=== PATIENT | female | born 1965 | race Asian ===

== ENCOUNTER 2018-09-22 02:44 | Inpatient (IN) | payer MEDICAID ==
[~2018-09-22] VITALS: Ht 152.4 cm; Wt 120.2 kg
[2018-09-22] VITALS (9 sets, daily range): BP systolic 92–127; BP diastolic 56–81
--- NOTE | 2018-09-22 02:47 | NUR ---
ED Nurse Note: Earnest presents BIBA with complaints of n/V and pain. patient is accompanied by family member.
[2018-09-22] MEDS ORDERED: DiphenhydrAMINE 50mg/ml Inj IVP ONE (03:00)
--- NOTE | 2018-09-22 03:08 | Emergency Room Report ---
History of Present Illness General Chief Complaint: Abdominal Pain Source: Family Member Present Illness HPI Patient presents with complaints of right flank pain lower abdomen pain dysuria frequency patient reports that 3 months ago she had a bladder infection Around midnight patient started having flank pain Increased nausea vomiting presents to the ER by paramedics actively vomiting Fevers and chills subjectively denies any chest pain Denies any diarrhea Denies any fall or trauma Allergies: Coded Allergies: No Known Allergies (Unverified , 09/22/18) Patient History Past Medical History: see triage record Pertinent Family History: none Reviewed Nursing Documentation: PMH: Agreed; PSxH: Agreed Nursing Documentation-PMH Hx Diabetes: Yes Review of Systems All Other Systems: negative except mentioned in HPI Physical Exam Vital Signs Date Time Temp Pulse Resp B/P (MAP) Pulse Ox O2 Delivery O2 Flow Rate FiO2 09/22/18 02:45 97.5 83 21 100/64 96 Room Air Sp02 EP Interpretation: reviewed, normal General Appearance: mild distress - Actively nauseated and vomiting Head: normocephalic, atraumatic Eyes: bilateral eye PERRL, bilateral eye EOMI ENT: hearing grossly normal, normal pharynx, TMs + canals normal, uvula midline Neck: full range of motion, supple, no meningismus, no bony tend Respiratory: lungs clear, normal breath sounds, no rhonchi, no respiratory distress, no retraction, no accessory muscle use Cardiovascular #1: normal peripheral pulses, regular rate, rhythm, no edema, no gallop, no JVD, no murmur Gastrointestinal: normal bowel sounds, non tender, soft, no mass, no organomegaly, non-distended, no guarding, no hernia, no pulsatile mass, no rebound Genitourinary: CVA tenderness (R) Musculoskeletal: normal inspection Neurologic: oriented x3, responsive, 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, motor strength/ tone normal, sensory intact Psychiatric: mood/affect normal Skin: normal color, no rash, warm/dry, palpation normal Lymphatic: normal inspection, no adenopathy Medical Decision Making Diagnostic Impression: Primary Impression: Pyelonephritis ER Course With the history exam and presentation, multiple differentials considered, including but not limited to appendicitis, gastritis, cholecystitis, diverticulitis Patient had extensive workup initiated Findings are concerning for possible pyelonephritis especially given the right sided flank discomfort CT imaging is obtained however please note that there is a delay in Reading of the CT as there is A disconnect between PACS and online radiology Patient further hydrated pain medications provided CT imaging does reveal right- sided hydronephrosis with differentials and consideration of recently passed stone versus pyelonephritis Patient admitted to inpatient care for further evaluation Labs Test 09/22/18 03:10 White Blood Count 11.2 K/UL (4.8-10.8) Red Blood Count 4.37 M/UL (4.20-5.40) Hemoglobin 12.4 G/DL (12.0-16.0) Hematocrit 37.1 % (37.0-47.0) Mean Corpuscular Volume 85 FL (80-99) Mean Corpuscular Hemoglobin 28.3 PG (27.0-31.0) Mean Corpuscular Hemoglobin Concent 33.4 G/DL (32.0-36.0) Red Cell Distribution Width 12.2 % (11.6-14.8) Platelet Count 124 K/UL (150-450) Mean Platelet Volume 13.7 FL (6.5-10.1) Neutrophils (%) (Auto) 81.8 % (45.0-75.0) Lymphocytes (%) (Auto) 16.3 % (20.0-45.0) Monocytes (%) (Auto) 0.9 % (1.0-10.0) Eosinophils (%) (Auto) 0.5 % (0.0-3.0) Basophils (%) (Auto) 0.6 % (0.0-2.0) Urine Color Pale yellow Urine Appearance Clear Urine pH 5 (4.5-8.0) Urine Specific [place] 1.020 (1.005-1.035) Urine Protein Negative (NEGATIVE) Urine Glucose (UA) 2+ (NEGATIVE) Urine Ketones Negative (NEGATIVE) Urine Blood Negative (NEGATIVE) Urine Nitrite Negative (NEGATIVE) Urine Bilirubin Negative (NEGATIVE) Urine Urobilinogen Normal MG/DL (0.0-1.0) Urine Leukocyte Esterase 1+ (NEGATIVE) Sodium Level 140 MMOL/L (136-145) Potassium Level 3.5 MMOL/L (3.5-5.1) Chloride Level 102 MMOL/L (98-107) Carbon Dioxide Level 30 MMOL/L (21-32) Anion Gap 8 mmol/L (5-15) Blood Urea Nitrogen 17 mg/dL (7-18) Creatinine 1.1 MG/DL (0.55-1.30) Estimat Glomerular Filtration Rate 52.6 mL/min (>60) Glucose Level 257 MG/DL (74-106) Calcium Level 8.8 MG/DL (8.5-10.1) Total Bilirubin 0.3 MG/DL (0.2-1.0) Aspartate Amino Transf (AST/SGOT) 14 U/L (15-37) Alanine Aminotransferase (ALT/SGPT) 22 U/L (12-78) Alkaline Phosphatase 94 U/L (46-116) Total Protein 7.5 G/DL (6.4-8.2) Albumin 3.6 G/DL (3.4-5.0) Globulin 3.9 g/dL Albumin/Globulin Ratio 0.9 (1.0-2.7) Lipase 164 U/L (73-393) CT/MRI/US Diagnostic Results CT/MRI/US Diagnostic Results : Impression CT abdomen pelvisIMPRESSION: Obstructive nephropathy in the right kidney with delayed enhancement of the right kidney and moderate inflammation and hydroureteronephrosis. No obstructing stone seen at this time. Findings may be due to recently passed stone. Pyelonephritis is another consideration. Other incidental findings as above. Last Vital Signs Date Time Temp Pulse Resp B/P (MAP) Pulse Ox O2 Delivery O2 Flow Rate FiO2 09/22/18 02:45 97.5 83 21 100/64 96 Room Air Status: improved Disposition: ADMITTED INPATIENT Condition: Serious TaylorlorManuela JEAN BAPTISTE Sep 22, 2018 03:08
[2018-09-22] MEDS ORDERED: Isovue-300 100ml vial INJ PRN (03:15)
[2018-09-22 03:34] LABS: BASOPHILS % (AUTO) 0.6 % (0.0-2.0); EOSINOPHILS % (AUTO) 0.5 % (0.0-3.0); HEMATOCRIT 37.1 % (37.0-47.0); HEMOGLOBIN 12.4 G/DL (12.0-16.0); LYMPHOCYTES % (AUTO) 16.3 % (20.0-45.0); MEAN CORPUSCULAR VOLUME 85 FL (80-99); MONOCYTES % (AUTO) 0.9 % (1.0-10.0); NEUTROPHILS % (AUTO) 81.8 % (45.0-75.0); PLATELET COUNT 124 K/UL (150-450); RED BLOOD COUNT 4.37 M/UL (4.20-5.40); RED CELL DISTRIBUTION WIDTH 12.2 % (11.6-14.8); WHITE BLOOD COUNT 11.2 K/UL (4.8-10.8)
[2018-09-22 03:37] LABS: ANION GAP 8 mmol/L (5-15); BLOOD UREA NITROGEN 17 mg/dL (7-18); CALCIUM 8.8 MG/DL (8.5-10.1); CARBON DIOXIDE 30 MMOL/L (21-32); CHLORIDE 102 MMOL/L (98-107); CREATININE 1.1 MG/DL (0.55-1.30); POTASSIUM 3.5 MMOL/L (3.5-5.1); SODIUM 140 MMOL/L (136-145)
[2018-09-22 03:41] LABS: ALANINE AMINOTRANSFERASE 22 U/L (12-78); ALBUMIN 3.6 G/DL (3.4-5.0); ALBUMIN/GLOBULIN RATIO 0.9 (1.0-2.7); ALKALINE PHOSPHATASE 94 U/L (46-116); ASPARTATE AMINO TRANSFERASE 14 U/L (15-37); BILIRUBIN,TOTAL 0.3 MG/DL (0.2-1.0)
[2018-09-22 03:44] LABS: APPEARANCE,URINE CLEAR; BILIRUBIN, URINE NEGATIVE (NEGATIVE); COLOR,URINE PALE YELLOW; GLUCOSE, URINE (UA) 2+ (NEGATIVE); KETONES,URINE NEGATIVE (NEGATIVE); LEUKOCYTE ESTERASE ,URINE 1+ (NEGATIVE); NITRITE,URINE NEGATIVE (NEGATIVE); PH,URINE 5 (4.5-8.0); PROTEIN,URINE NEGATIVE (NEGATIVE); UROBILINOGEN,URINE NORMAL MG/DL (0.0-1.0)
--- NOTE | 2018-09-22 03:47 | NUR ---
ED Nurse Note: Patient is resting with and sister alternating at bedside. Patient is lethargic, and agitated.
--- NOTE | 2018-09-22 04:20 | NUR ---
ED Nurse Note: Patient returned from CT.
--- NOTE | 2018-09-22 04:23 | NUR ---
ED Nurse Note: patient is sleeping soundly, sister is at her bedside. no s/s of acute distress.
[2018-09-22] MEDS ORDERED: cefTRIAXone 1 GM in NS 55 ML IVPB ONE (04:45)
--- NOTE | 2018-09-22 05:48 | NUR ---
ED Nurse Note: Patient currently resting, vss.
[2018-09-22] MEDS ORDERED: METFORMIN500 MG/5 M PO (05:58)
[2018-09-22] MEDS ORDERED: LIPITOR80 MG ORAL (05:58)
--- NOTE | 2018-09-22 06:04 | NUR ---
ED Nurse Note: called in report to spring who will assign patient momentarily, patient accompanied by er-tech to the floor. Patient sleeping comfortably no s/s of acute distress. iV saline locked at left AC.
--- NOTE | 2018-09-22 06:30 | NUR ---
NURSE NOTES: Received patient from ER report given by LIZBETH Hwang via dash. Patient awake and alert. Able to make needs known. Family at bedside. IV line intact right AC 20 saline lock. Oriented patient to room. Provided call light. Will call Dr. Hernández for admission orders. Will endorse to am nurse patient temp. 100.6 cooling measure provided by GEOCHEMIST. Will continue to monitor.
--- NOTE | 2018-09-22 07:34 | NUR ---
HAND-OFF: Report given to LIZBETH Enriquez.
--- NOTE | 2018-09-22 07:43 | NUR ---
Received report from LIZBETH Whelan. patient in bed, alert, getting US, bed in lowest position, call light within reach. will continue to monitor.
--- NOTE | 2018-09-22 08:09 | History & Physical ---
History and Physical History & Physicial Patient presents with complaints of right flank pain lower abdomen pain dysuria frequency family noted recent history of UTI Increased nausea vomiting noted +Fevers and chills Allergies: No Known Allergies (Unverified , 09/22/18) Past Medical History: UTI Laboratory Tests Test 09/22/18 03:10 White Blood Count 11.2 K/UL (4.8-10.8) H Red Blood Count 4.37 M/UL (4.20-5.40) Hemoglobin 12.4 G/DL (12.0-16.0) Hematocrit 37.1 % (37.0-47.0) Mean Corpuscular Volume 85 FL (80-99) Mean Corpuscular Hemoglobin 28.3 PG (27.0-31.0) Mean Corpuscular Hemoglobin Concent 33.4 G/DL (32.0-36.0) Red Cell Distribution Width 12.2 % (11.6-14.8) Platelet Count 124 K/UL (150-450) L Mean Platelet Volume 13.7 FL (6.5-10.1) H Neutrophils (%) (Auto) 81.8 % (45.0-75.0) H Lymphocytes (%) (Auto) 16.3 % (20.0-45.0) L Monocytes (%) (Auto) 0.9 % (1.0-10.0) L Eosinophils (%) (Auto) 0.5 % (0.0-3.0) Basophils (%) (Auto) 0.6 % (0.0-2.0) Urine Color Pale yellow Urine Appearance Clear Urine pH 5 (4.5-8.0) Urine Specific [place] 1.020 (1.005-1.035) Urine Protein Negative (NEGATIVE) Urine Glucose (UA) 2+ (NEGATIVE) H Urine Ketones Negative (NEGATIVE) Urine Blood Negative (NEGATIVE) Urine Nitrite Negative (NEGATIVE) Urine Bilirubin Negative (NEGATIVE) Urine Urobilinogen Normal MG/DL (0.0-1.0) Urine Leukocyte Esterase 1+ (NEGATIVE) H Urine RBC 0-2 /HPF (0 - 2) Urine WBC 5-10 /HPF (0 - 2) H Urine Squamous Epithelial Cells Moderate /LPF (NONE/OCC) H Urine Bacteria Few /HPF (NONE) Sodium Level 140 MMOL/L (136-145) Potassium Level 3.5 MMOL/L (3.5-5.1) Chloride Level 102 MMOL/L (98-107) Carbon Dioxide Level 30 MMOL/L (21-32) Anion Gap 8 mmol/L (5-15) Blood Urea Nitrogen 17 mg/dL (7-18) Creatinine 1.1 MG/DL (0.55-1.30) Estimat Glomerular Filtration Rate 52.6 mL/min (>60) Glucose Level 257 MG/DL (74-106) H Calcium Level 8.8 MG/DL (8.5-10.1) Total Bilirubin 0.3 MG/DL (0.2-1.0) Aspartate Amino Transf (AST/SGOT) 14 U/L (15-37) L Alanine Aminotransferase (ALT/SGPT) 22 U/L (12-78) Alkaline Phosphatase 94 U/L (46-116) Total Protein 7.5 G/DL (6.4-8.2) Albumin 3.6 G/DL (3.4-5.0) Globulin 3.9 g/dL Albumin/Globulin Ratio 0.9 (1.0-2.7) L Lipase 164 U/L (73-393) Pertinent Family History: none Physical WDWN NAD clear breath sounds bilaterally without rhonchi or wheeze [id number] tachy without MRG NABS nontender no HSM no CCE nonfocal mild right flank tenderness IMPRESSION possible pyelo vomiting PLAN iv hydration iv antibiotics repeat labs zofran ID evaluation dc once stable Kartik Hernández MD Sep 22, 2018 08:09
--- NOTE | 2018-09-22 08:09 | General Progress Note ---
Subjective Allergies: Coded Allergies: No Known Allergies (Unverified , 09/22/18) Objective Last 24 Hour Vital Signs Date Time Temp Pulse Resp B/P (MAP) Pulse Ox O2 Delivery O2 Flow Rate FiO2 09/22/18 07:56 99.5 123 20 113/63 (80) 95 09/22/18 06:12 98.1 111 33 107/67 98 Room Air 09/22/18 05:52 97.5 111 33 107/67 100 Room Air 09/22/18 04:23 97.5 112 34 120/76 100 Room Air 09/22/18 03:47 97.5 99 29 118/73 100 Room Air 09/22/18 03:43 97.5 95 33 118/73 100 Room Air 09/22/18 02:47 83 21 Room Air 09/22/18 02:47 97.5 78 21 100/64 96 Room Air 09/22/18 02:45 97.5 83 21 100/64 96 Room Air Intake and Output 09/21/18 09/22/18 19:00 07:00 Intake Total 0 ml Balance 0 ml Intake Oral 0 ml Laboratory Tests 09/22/18 03:10: White Blood Count 11.2H, Red Blood Count 4.37, Hemoglobin 12.4, Hematocrit 37.1 , Mean Corpuscular Volume 85, Mean Corpuscular Hemoglobin 28.3, Mean Corpuscular Hemoglobin Concent 33.4, Red Cell Distribution Width 12.2, Platelet Count 124L, Mean Platelet Volume 13.7H, Neutrophils (%) (Auto) 81.8H, Lymphocytes (%) (Auto) 16.3L, Monocytes (%) (Auto) 0.9L, Eosinophils (%) (Auto) 0.5, Basophils (%) (Auto) 0.6, Urine Color Pale yellow, Urine Appearance Clear, Urine pH 5, Urine Specific [place] 1.020, Urine Protein Negative, Urine Glucose (UA) 2+H, Urine Ketones Negative, Urine Blood Negative, Urine Nitrite Negative, Urine Bilirubin Negative, Urine Urobilinogen Normal, Urine Leukocyte Esterase 1+ H, Urine RBC 0-2, Urine WBC 5-10H, Urine Squamous Epithelial Cells ModerateH, Urine Bacteria Few, Sodium Level 140, Potassium Level 3.5, Chloride Level 102, Carbon Dioxide Level 30, Anion Gap 8, Blood Urea Nitrogen 17, Creatinine 1.1, Estimat Glomerular Filtration Rate 52.6, Glucose Level 257H, Calcium Level 8.8, Total Bilirubin 0.3, Aspartate Amino Transf (AST/SGOT) 14L, Alanine Aminotransferase (ALT/SGPT) 22, Alkaline Phosphatase 94, Total Protein 7.5, Albumin 3.6, Globulin 3.9, Albumin/Globulin Ratio 0.9L, Lipase 164 Height (Feet): 5 Weight (Pounds): 99 Kartik Hernández MD Sep 22, 2018 08:09
[2018-09-22] MEDS ORDERED: Milk of Magnesia 30ml Ud ORAL PRN (08:15)
[2018-09-22] MEDS ORDERED: Zolpidem 5mg tab ORAL PRN (08:15)
--- NOTE | 2018-09-22 09:01 | Diagnostic Imaging Report ---
Indication: Abdominal pain Technique: Continuous helical transaxial imaging of the abdomen and pelvis was obtained from the lung bases to the pubic symphysis during intravenous contrast administration. Coronal 2-D reformats were also obtained. Study obtained in a Siemens sensation [address] Automatic Exposure Control was utilized. Total Dose length Product (DLP): [address] Dose Index Volume (CTDIvol): 9.87 mGy Comparison: None Findings: There is a moderate right perinephric stranding and delayed enhancement of the right kidney with the mild to moderate right hydroureteronephrosis. No definite the urinary tract stone identified to account for this. There is also thickening of the wall the urinary bladder. No free fluid identified. There is a hiatal hernia. Solid organs appear normal. Diverticula noted in the colon. No evidence of diverticulitis. The appendix is normal. IMPRESSION: Obstructive nephropathy in the right kidney with delayed enhancement of the right kidney and moderate inflammation and hydroureteronephrosis. No obstructing stone seen at this time. Findings may be due to recently passed stone. Pyelonephritis is another consideration. Other incidental findings as above. [facility] has communicated the preliminary results to the Emergency Department. Their findings are largely concordant with this report. The CT scanner at [facility] is accredited by the [employer] and the scans are performed using dose optimization techniques as appropriate to a performed exam including Automatic Exposure control.
[2018-09-22] MEDS: Cefepime HCl 1 GM in D5W 55 ML IVPB SCH ×2 (09:33→22:25)
[2018-09-22] MEDS: metFORMIN 500mg tab ORAL SCH ×2 (11:39→16:59)
[2018-09-22] MEDS: NovoLOG Insulin Flexpen SUBQ SCH ×3 (11:42→22:47)
--- NOTE | 2018-09-22 15:30 | Consultation ---
DATE OF CONSULTATION: 09/22/2018 INFECTIOUS DISEASES CONSULTATION: CONSULTING PHYSICIAN: Medina Ybarra M.D. REFERRING PHYSICIAN: Kartik Hernández M.D. REASON FOR CONSULTATION: Urinary tract infection. HISTORY OF PRESENT ILLNESS: This is a 52-year-old lady with history of diabetes, hypertension, hypercholesterolemia who came in with fever, chills, nausea, and vomiting as well as dysuria and increased frequency of urination. She was found to have urinary tract infection and an Infectious Diseases consultation has been obtained for antibiotics. PAST MEDICAL HISTORY: 1. History of diabetes. 2. History of hypertension. 3. Hypercholesterolemia. SOCIAL HISTORY: She does not smoke, drink, or use drugs. FAMILY HISTORY: Positive for blood cancer in her brother. REVIEW OF SYSTEMS: RESPIRATORY: She had fever and chills. No cough. No shortness of breath or chest pain. CARDIAC: No chest pain. No palpitations. No dizziness. No syncope. GASTROINTESTINAL: She has nausea and vomiting. No abdominal pain. She has diarrhea. GENITOURINARY: She has dysuria and increased frequency of urination. MEDICATIONS: As an inpatient, she is on insulin, cefepime, Protonix, Mylanta, Tylenol, [place], Zofran, Ambien, milk of magnesia, Iopamidol. ALLERGIES: No known drug allergies. PHYSICAL EXAMINATION: VITAL SIGNS: Temperature of 99, T-max of 99.5, pulse of 123, respiratory rate 20, blood pressure 113/63, and O2 saturation of 95%. HEENT: Pupils equally reactive to light and accommodation. Mouth appears clean without thrush. NECK: Supple. No adenopathy. No JVD. CARDIOVASCULAR: Regular rate and rhythm. No murmurs. LUNGS: Clear to auscultation bilaterally. No crackles. No wheezes. ABDOMEN: Soft. She has right-sided CVA tenderness. No organomegaly. EXTREMITIES: No cyanosis, no clubbing, no edema. LABORATORY AND DIAGNOSTIC DATA: White count 11.2, hemoglobin 12.4, hematocrit 37.1, MCV 85, platelet count of 124, neutrophils of 81%. Sodium 140, potassium 3.5, chloride 102, bicarb 30, BUN 17, creatinine 1.1, glucose 257, and calcium 8.8. Total bilirubin 0.3, AST 14, ALT 22, and alkaline phosphatase 94. Total protein 7.5. Albumin 3.6. Lipase of 164. UA showing 5 to [address] abdomen and pelvis showing obstructive uropathy in the right kidney with delayed enhancement of the right kidney and moderate inflammation and hydroureteronephrosis. No obstructing stone noted. Pyelonephritis is a possibility. ASSESSMENT: This is a 52-year-old lady with history of diabetes, hypertension, hypercholesterolemia who comes in with fever, chills, nausea, vomiting as well as dysuria and is found to have: 1. Urinary tract infection and right-sided pyelonephritis. 2. Fevers, improving. PLAN: 1. Continue cefepime. 2. We will order urine cultures. 3. We will follow up cultures and adjust antibiotics accordingly. I would like to thank, Dr. Hernández for this consultation. Medina Ybarra M.D. DR: FITO JOB#: [id number] CC: Kartik Hernández M.D.; Fax#: [phone]
--- NOTE | 2018-09-22 15:55 | NUR ---
CASE MANAGEMENT:REVIEW 52 YR OLD FEMALE TO ER CC: ABDOMINAL PAIN 06/17 PMH: S/P UTI 1 WEEK AGO SI: PYELONEPHRITIS 97.6 83 21 100/64 96% ON RA WBC=11.2 URINE(+) 5-10 WBC IS: IV ZOFRAN 1L NS BOLUS IV BENADRYL IV ROCEPHIN CT ABD/PELVIS URINE REFLEX : TO TELEMETRY SI: T~102 HR~116 BP~92/56 IS: IV CEFEPIME Q12 INTERQUAL CRITERIA MET
--- NOTE | 2018-09-22 19:11 | NUR ---
HAND-OFF: Report given to LIZBETH Manley.
[2018-09-22] MEDS: Atorvastatin 80mg tab ORAL SCH (22:25)
[2018-09-23] VITALS: BP 109/65
[2018-09-23 04:00] VITALS: BP 114/67
[2018-09-23] MEDS: metFORMIN 500mg tab ORAL SCH ×3 (06:00→16:40)
[2018-09-23 06:43] LABS: HEMATOCRIT 33.1 % (37.0-47.0); HEMOGLOBIN 10.9 G/DL (12.0-16.0); MEAN CORPUSCULAR VOLUME 85 FL (80-99); PLATELET COUNT 89 K/UL (150-450); RED BLOOD COUNT 3.89 M/UL (4.20-5.40); RED CELL DISTRIBUTION WIDTH 12.4 % (11.6-14.8); WHITE BLOOD COUNT 14.9 K/UL (4.8-10.8)
[2018-09-23 06:52] LABS: ANION GAP 6 mmol/L (5-15); BLOOD UREA NITROGEN 10 mg/dL (7-18); CALCIUM 8.6 MG/DL (8.5-10.1); CARBON DIOXIDE 28 MMOL/L (21-32); CHLORIDE 108 MMOL/L (98-107); CREATININE 0.9 MG/DL (0.55-1.30); POTASSIUM 3.7 MMOL/L (3.5-5.1); SODIUM 142 MMOL/L (136-145)
[2018-09-23] MEDS: NovoLOG Insulin Flexpen SUBQ SCH ×4 (07:03→20:30)
--- NOTE | 2018-09-23 07:30 | NUR ---
HAND-OFF: Report given to LIZBETH Anderson.
--- NOTE | 2018-09-23 07:34 | NUR ---
NURSE NOTES: Received report from LIZBETH Christian. patient in bed. sleeping. bed in lowest position. call light within reach. will continue to monitor.
[2018-09-23 08:00] VITALS: BP 119/75
[2018-09-23] MEDS ORDERED: Tubing IV Secondary IV ONE (08:00)
[2018-09-23] MEDS: Cefepime HCl 1 GM in D5W 55 ML IVPB SCH ×2 (08:45→20:29)
[2018-09-23] MEDS: HYDROcodone/Acetamin 5/325 tab ORAL PRN ×2 (08:46→20:29)
--- NOTE | 2018-09-23 10:59 | Infectious Diseases Prog Note ---
"Assessment/Plan Assessment/Plan antibiotics : cefepime A 1. UTI | right pyelonephritis 2. diabetes mellitus 3. hypertension 4. fever improving 5. leucocytosis P 1. continue cefepime 2. will follow up cultures Subjective ROS Limited/Unobtainable: Yes Allergies: Coded Allergies: No Known Allergies (Unverified , 09/22/18) Objective Vital Signs Last 24 Hour Vital Signs Date Time Temp Pulse Resp B/P (MAP) Pulse Ox O2 Delivery O2 Flow Rate FiO2 09/23/18 08:00 98.4 100 16 119/75 (90) 94 09/23/18 04:00 97.7 94 16 114/67 (83) 97 09/23/18 00:03 99.1 09/23/18 00:00 97.9 101 16 109/65 (80) 97 09/22/18 20:00 99.1 88 18 127/81 (96) 94 09/22/18 16:00 98.2 100 20 113/78 (90) 98 09/22/18 12:48 Room Air 09/22/18 11:55 99.0 116 20 92/56 (68) 96 09/22/18 11:54 Room Air Height (Feet): 5 Height (Inches): 0.00 Weight (Pounds): 265 Microbiology Date/Time Source Procedure Growth Status 09/22/18 11:20 Urine,Clean Catch Urine Culture - Preliminary Mixed Urogenital Contaminants Resulted Laboratory Tests Test 09/23/18 05:10 White Blood Count 14.9 K/UL (4.8-10.8) H Red Blood Count 3.89 M/UL (4.20-5.40) L Hemoglobin 10.9 G/DL (12.0-16.0) L Hematocrit 33.1 % (37.0-47.0) L Mean Corpuscular Volume 85 FL (80-99) Mean Corpuscular Hemoglobin 27.9 PG (27.0-31.0) Mean Corpuscular Hemoglobin Concent 32.8 G/DL (32.0-36.0) Red Cell Distribution Width 12.4 % (11.6-14.8) Platelet Count 89 K/UL (150-450) L Mean Platelet Volume 12.1 FL (6.5-10.1) H Neutrophils (%) (Auto) % (45.0-75.0) Lymphocytes (%) (Auto) % (20.0-45.0) Monocytes (%) (Auto) % (1.0-10.0) Eosinophils (%) (Auto) % (0.0-3.0) Basophils (%) (Auto) % (0.0-2.0) Differential Total Cells Counted 100 Neutrophils % (Manual) 83 % (45-75) H Lymphocytes % (Manual) 10 % (20-45) L Monocytes % (Manual) 5 % (1-10) Eosinophils % (Manual) 0 % (0-3) Basophils % (Manual) 0 % (0-2) Band Neutrophils 2 % (0-8) Platelet Estimate Decreased L Platelet Morphology Normal Red Blood Cell Morphology Normal Sodium Level 142 MMOL/L (136-145) Potassium Level 3.7 MMOL/L (3.5-5.1) Chloride Level 108 MMOL/L (98-107) H Carbon Dioxide Level 28 MMOL/L (21-32) Anion Gap 6 mmol/L (5-15) Blood Urea Nitrogen 10 mg/dL (7-18) Creatinine 0.9 MG/DL (0.55-1.30) Estimat Glomerular Filtration Rate > 60 mL/min (>60) Glucose Level 150 MG/DL (74-106) #H Calcium Level 8.6 MG/DL (8.5-10.1) Current Medications Medications (Trade) Dose Ordered Sig/Deep Route PRN Reason Start Time Stop Time Status Last Admin Dose Admin Acetaminophen (Tylenol) 650 mg Q4H PRN ORAL Mild Pain/Temp > 100.5 09/22/18 08:15 10/22/18 08:14 09/22/18 23:33 Acetaminophen/ Hydrocodone Bitart ([place] 5/325) 1 tab Q4H PRN ORAL Moderate Pain (Pain Scale 4-6) 09/22/18 08:15 09/29/18 08:14 09/23/18 08:46 Al Hydroxide/Mg Hydroxide (Mylanta) 30 ml Q6H PRN ORAL Dyspepsia 09/22/18 10:45 10/22/18 10:44 Atorvastatin Calcium (Lipitor) 80 mg BEDTIME ORAL 09/22/18 21:00 10/22/18 20:59 09/22/18 22:25 Cefepime HCl 1 gm/ Dextrose 55 ml @ 110 mls/hr Q12HR IVPB 09/22/18 09:00 09/29/18 08:59 09/23/18 08:45 Dextrose (Dextrose 50%) 25 ml Q30M PRN IV Hypoglycemia 09/22/18 08:15 10/22/18 08:14 Dextrose (Dextrose 50%) 50 ml Q30M PRN IV Hypoglycemia 09/22/18 08:15 10/22/18 08:14 Insulin Aspart (NovoLOG) BEFORE MEALS AND HS SUBQ 09/22/18 11:30 10/22/18 11:29 09/23/18 07:03 Iopamidol (Isovue-300 100ml) 100 ml NOW PRN INJ Radiology Procedure 09/22/18 03:15 Magnesium Hydroxide (Mom) 30 ml DAILYPRN PRN ORAL Constipation 09/22/18 08:15 10/22/18 08:14 Metformin HCl (Glucophage) 500 mg TIAC ORAL 09/22/18 11:30 10/22/18 11:29 09/23/18 06:00 Ondansetron HCl (Zofran) 4 mg Q6H PRN IVP Nausea & Vomiting 09/22/18 08:15 10/22/18 08:14 Pantoprazole (Protonix) 40 mg DAILY ORAL 09/22/18 09:00 10/22/18 08:59 09/23/18 08:46 Sodium Chloride 1,000 ml @ 100 mls/hr Q10H IV 09/22/18 08:30 10/22/18 08:29 09/23/18 04:56 Zolpidem Tartrate (Ambien) 5 mg HSPRN PRN ORAL Insomnia 09/23/18 21:00 09/30/18 20:59 Medina Ybarra MD Sep 23, 2018 10:59"
[2018-09-23 12:00] VITALS: BP 134/86
--- NOTE | 2018-09-23 13:38 | NUR ---
CASE MANAGEMENT:REVIEW 09/23/18 SI: UTI/PYELONEPHRITIS 97.9 91 16 134/86 93% ON RA WBC+14.9 PLT-89 IS: IVF@100/HR IV CEFEPIME Q12 [place] PO Q4HRS PRN : MED/SURG STATUS 4 EAST DCP: FROM HOME
[2018-09-23 16:00] VITALS: BP 136/86
--- NOTE | 2018-09-23 16:05 | Pulmonology Progress Note ---
Assessment/Plan Assessment/Plan Pulmonary Progress Note Patient with right Pyelonephritis, previously c/o right flank pain lower abdomen pain dysuria frequency Afebrile Elevated WCC, Cefepime per ID Allergies: No Known Allergies (Unverified , 09/22/18) Past Medical History: UTI Laboratory Tests Test 09/22/18 03:10 White Blood Count 11.2 K/UL (4.8-10.8) H Red Blood Count 4.37 M/UL (4.20-5.40) Hemoglobin 12.4 G/DL (12.0-16.0) Hematocrit 37.1 % (37.0-47.0) Mean Corpuscular Volume 85 FL (80-99) Mean Corpuscular Hemoglobin 28.3 PG (27.0-31.0) Mean Corpuscular Hemoglobin Concent 33.4 G/DL (32.0-36.0) Red Cell Distribution Width 12.2 % (11.6-14.8) Platelet Count 124 K/UL (150-450) L Mean Platelet Volume 13.7 FL (6.5-10.1) H Neutrophils (%) (Auto) 81.8 % (45.0-75.0) H Lymphocytes (%) (Auto) 16.3 % (20.0-45.0) L Monocytes (%) (Auto) 0.9 % (1.0-10.0) L Eosinophils (%) (Auto) 0.5 % (0.0-3.0) Basophils (%) (Auto) 0.6 % (0.0-2.0) Urine Color Pale yellow Urine Appearance Clear Urine pH 5 (4.5-8.0) Urine Specific [place] 1.020 (1.005-1.035) Urine Protein Negative (NEGATIVE) Urine Glucose (UA) 2+ (NEGATIVE) H Urine Ketones Negative (NEGATIVE) Urine Blood Negative (NEGATIVE) Urine Nitrite Negative (NEGATIVE) Urine Bilirubin Negative (NEGATIVE) Urine Urobilinogen Normal MG/DL (0.0-1.0) Urine Leukocyte Esterase 1+ (NEGATIVE) H Urine RBC 0-2 /HPF (0 - 2) Urine WBC 5-10 /HPF (0 - 2) H Urine Squamous Epithelial Cells Moderate /LPF (NONE/OCC) H Urine Bacteria Few /HPF (NONE) Sodium Level 140 MMOL/L (136-145) Potassium Level 3.5 MMOL/L (3.5-5.1) Chloride Level 102 MMOL/L (98-107) Carbon Dioxide Level 30 MMOL/L (21-32) Anion Gap 8 mmol/L (5-15) Blood Urea Nitrogen 17 mg/dL (7-18) Creatinine 1.1 MG/DL (0.55-1.30) Estimat Glomerular Filtration Rate 52.6 mL/min (>60) Glucose Level 257 MG/DL (74-106) H Calcium Level 8.8 MG/DL (8.5-10.1) Total Bilirubin 0.3 MG/DL (0.2-1.0) Aspartate Amino Transf (AST/SGOT) 14 U/L (15-37) L Alanine Aminotransferase (ALT/SGPT) 22 U/L (12-78) Alkaline Phosphatase 94 U/L (46-116) Total Protein 7.5 G/DL (6.4-8.2) Albumin 3.6 G/DL (3.4-5.0) Globulin 3.9 g/dL Albumin/Globulin Ratio 0.9 (1.0-2.7) L Lipase 164 U/L (73-393) Pertinent Family History: none VSS noted Physical WDWN NAD clear breath sounds bilaterally without rhonchi or wheeze [id number] tachy without MRG NABS nontender no HSM no CCE nonfocal mild right flank tenderness IMPRESSION possible pyelo vomiting PLAN iv hydration iv antibiotics repeat labs zofran ID evaluation dc once stable Subjective ROS Limited/Unobtainable: No Allergies: Coded Allergies: No Known Allergies (Unverified , 09/22/18) Objective Last 24 Hour Vital Signs Date Time Temp Pulse Resp B/P (MAP) Pulse Ox O2 Delivery O2 Flow Rate FiO2 09/23/18 12:00 97.9 91 16 134/86 (102) 93 09/23/18 09:00 Room Air 09/23/18 08:00 98.4 100 16 119/75 (90) 94 09/23/18 04:00 97.7 94 16 114/67 (83) 97 09/23/18 00:03 99.1 09/23/18 00:00 97.9 101 16 109/65 (80) 97 09/22/18 20:00 99.1 88 18 127/81 (96) 94 Intake and Output 09/22/18 09/23/18 19:00 07:00 Intake Total 1105 ml 835 ml Balance 1105 ml 835 ml Intake Oral 150 ml IV Total 955 ml 835 ml # Voids 3 3 Microbiology Date/Time Source Procedure Growth Status 09/22/18 11:20 Urine,Clean Catch Urine Culture - Preliminary Mixed Urogenital Contaminants Resulted Laboratory Tests 09/23/18 05:10: White Blood Count 14.9H, Red Blood Count 3.89L, Hemoglobin 10.9L, Hematocrit 33.1L, Mean Corpuscular Volume 85, Mean Corpuscular Hemoglobin 27.9, Mean Corpuscular Hemoglobin Concent 32.8, Red Cell Distribution Width 12.4, Platelet Count 89L, Mean Platelet Volume 12.1H, Neutrophils (%) (Auto) , Lymphocytes (%) (Auto) , Monocytes (%) (Auto) , Eosinophils (%) (Auto) , Basophils (%) (Auto) , Differential Total Cells Counted 100, Neutrophils % (Manual) 83H, Lymphocytes % (Manual) 10L, Monocytes % (Manual) 5, Eosinophils % (Manual) 0, Basophils % ( Manual) 0, Band Neutrophils 2, Platelet Estimate DecreasedL, Platelet Morphology Normal, Red Blood Cell Morphology Normal, Sodium Level 142, Potassium Level 3.7, Chloride Level 108H, Carbon Dioxide Level 28, Anion Gap 6, Blood Urea Nitrogen 10, Creatinine 0.9, Estimat Glomerular Filtration Rate > 60 , Glucose Level 150#H, Calcium Level 8.6 Current Medications Medications (Trade) Dose Ordered Sig/Deep Route PRN Reason Start Time Stop Time Status Last Admin Dose Admin Acetaminophen (Tylenol) 650 mg Q4H PRN ORAL Mild Pain/Temp > 100.5 09/22/18 08:15 10/22/18 08:14 09/22/18 23:33 Acetaminophen/ Hydrocodone Bitart ([place] 5/325) 1 tab Q4H PRN ORAL Moderate Pain (Pain Scale 4-6) 09/22/18 08:15 09/29/18 08:14 09/23/18 08:46 Al Hydroxide/Mg Hydroxide (Mylanta) 30 ml Q6H PRN ORAL Dyspepsia 09/22/18 10:45 10/22/18 10:44 Atorvastatin Calcium (Lipitor) 80 mg BEDTIME ORAL 09/22/18 21:00 10/22/18 20:59 09/22/18 22:25 Cefepime HCl 1 gm/ Dextrose 55 ml @ 110 mls/hr Q12HR IVPB 09/22/18 09:00 09/29/18 08:59 09/23/18 08:45 Dextrose (Dextrose 50%) 25 ml Q30M PRN IV Hypoglycemia 09/22/18 08:15 10/22/18 08:14 Dextrose (Dextrose 50%) 50 ml Q30M PRN IV Hypoglycemia 09/22/18 08:15 10/22/18 08:14 Insulin Aspart (NovoLOG) BEFORE MEALS AND HS SUBQ 09/22/18 11:30 10/22/18 11:29 09/23/18 11:51 Iopamidol (Isovue-300 100ml) 100 ml NOW PRN INJ Radiology Procedure 09/22/18 03:15 Magnesium Hydroxide (Mom) 30 ml DAILYPRN PRN ORAL Constipation 09/22/18 08:15 10/22/18 08:14 Metformin HCl (Glucophage) 500 mg TIAC ORAL 09/22/18 11:30 10/22/18 11:29 09/23/18 11:49 Ondansetron HCl (Zofran) 4 mg Q6H PRN IVP Nausea & Vomiting 09/22/18 08:15 10/22/18 08:14 Pantoprazole (Protonix) 40 mg DAILY ORAL 09/22/18 09:00 10/22/18 08:59 09/23/18 08:46 Sodium Chloride 1,000 ml @ 100 mls/hr Q10H IV 09/22/18 08:30 10/22/18 08:29 09/23/18 14:18 Zolpidem Tartrate (Ambien) 5 mg HSPRN PRN ORAL Insomnia 09/23/18 21:00 09/30/18 20:59 Michael Almendarez MD Sep 23, 2018 16:05
--- NOTE | 2018-09-23 19:10 | NUR ---
HAND-OFF: Report given to LIZBETH Lr.
--- NOTE | 2018-09-23 19:39 | NUR ---
NURSE NOTES: Patient in bed, awake, alert, verbally responsive. IV in place, running IV fluids. No complaints of pain at this time. No s/s distress noted. Bed in lowest position, call light within reach. Will continue to monitor.
[2018-09-23 20:11] VITALS: BP 138/92
[2018-09-23] MEDS: Atorvastatin 80mg tab ORAL SCH (20:29)
[2018-09-23] MEDS ORDERED: Zolpidem 5mg tab ORAL PRN (21:00)
--- NOTE | 2018-09-23 22:45 | NUR ---
NURSE NOTES: Patient's IV access tender and puffy, removed. New IV access right wrist 24 gauge, intact and patent.
[2018-09-24 00:12] VITALS: BP 132/82
[2018-09-24 04:13] VITALS: BP 111/71
[2018-09-24] MEDS: metFORMIN 500mg tab ORAL SCH ×3 (06:13→16:56)
[2018-09-24] MEDS: NovoLOG Insulin Flexpen SUBQ SCH ×4 (06:14→21:40)
--- NOTE | 2018-09-24 07:30 | NUR ---
HAND-OFF: Report given to OCTAVIA LORA RN.
--- NOTE | 2018-09-24 07:47 | NUR ---
NURSE NOTES: pt in bed with no sob nor in any form of distress noted. denies any current pain at this time. bed in lowest position. call light within reach at all time. will continue to monitor
[2018-09-24 08:00] VITALS: BP 153/99
[2018-09-24] MEDS: Cefepime HCl 1 GM in D5W 55 ML IVPB SCH ×2 (09:22→21:35)
--- NOTE | 2018-09-24 11:53 | NUR ---
CASE MANAGEMENT:REVIEW 09/24/18 SI: UTI/PYELONEPHRITIS 98.3 90 18 153/99 96% ON RA IS: IVF@100/HR IV CEFEPIME Q12 NORCO PO Q4HRS PRN : MED/SURG STATUS 4 EAST DCP: FROM HOME PLAN: ADVANCE DIET URINE CULTURE PENDING
--- NOTE | 2018-09-24 11:59 | General Progress Note ---
Assessment/Plan Assessment/Plan uti possible pyelo leukocytosis PLAN iv hydration iv antibiotics ID clearance check wbc impression, plan, and exam edited and reviewed in detail care discussed with RN Subjective Allergies: Coded Allergies: No Known Allergies (Unverified , 09/22/18) Subjective some pain Objective Last 24 Hour Vital Signs Date Time Temp Pulse Resp B/P (MAP) Pulse Ox O2 Delivery O2 Flow Rate FiO2 09/24/18 09:34 Room Air 09/24/18 08:00 98.3 90 18 153/99 (117) 96 09/24/18 04:13 97.8 91 17 111/71 (84) 97 09/24/18 00:12 98.1 92 17 132/82 (99) 96 09/23/18 21:00 Room Air 09/23/18 20:59 98.5 09/23/18 20:11 98.5 96 17 138/92 (107) 96 09/23/18 16:00 97.7 98 16 136/86 (103) 98 09/23/18 12:00 97.9 91 16 134/86 (102) 93 Intake and Output 09/23/18 09/24/18 18:59 06:59 Intake Total 1755 ml 795 ml Balance 1755 ml 795 ml Intake Oral 600 ml 240 ml IV Total 1155 ml 555 ml # Voids 4 4 Height (Feet): 5 Height (Inches): 0.00 Weight (Pounds): 265 Objective WDWN NAD clear breath sounds bilaterally without rhonchi or wheeze [id number] without MRG NABS nontender no HSM no CCE nonfocal Kartik Hernández MD Sep 24, 2018 11:59
[2018-09-24 12:00] VITALS: BP 146/96
[2018-09-24 12:17] LABS: BASOPHILS % (AUTO) 0.3 % (0.0-2.0); EOSINOPHILS % (AUTO) 1.8 % (0.0-3.0); HEMATOCRIT 33.1 % (37.0-47.0); HEMOGLOBIN 10.8 G/DL (12.0-16.0); LYMPHOCYTES % (AUTO) 16.9 % (20.0-45.0); MEAN CORPUSCULAR VOLUME 85 FL (80-99); MONOCYTES % (AUTO) 5.6 % (1.0-10.0); NEUTROPHILS % (AUTO) 75.4 % (45.0-75.0); PLATELET COUNT 106 K/UL (150-450); RED CELL DISTRIBUTION WIDTH 12.2 % (11.6-14.8); WHITE BLOOD COUNT 7.7 K/UL (4.8-10.8)
--- NOTE | 2018-09-24 13:37 | Infectious Diseases Prog Note ---
"Assessment/Plan Assessment/Plan A 1. UTI | right pyelonephritis 2. diabetes mellitus 3. hypertension 4. fever resolved 5. leucocytosis resolved 6. R hydroureteronephrosis P 1. continue cefepime in hospital 2. can be discharged with PO Levaquin X 7 days Subjective ROS Limited/Unobtainable: No Constitutional: Reports: no symptoms HEENT: Reports: no symptoms Respiratory: Reports: no symptoms Gastrointestinal/Abdominal: Reports: no symptoms Genitourinary: Reports: other - R flank pain Allergies: Coded Allergies: No Known Allergies (Unverified , 09/22/18) Objective Vital Signs Last 24 Hour Vital Signs Date Time Temp Pulse Resp B/P (MAP) Pulse Ox O2 Delivery O2 Flow Rate FiO2 09/24/18 12:00 98.5 88 18 146/96 (113) 99 09/24/18 09:34 Room Air 09/24/18 08:00 98.3 90 18 153/99 (117) 96 09/24/18 04:13 97.8 91 17 111/71 (84) 97 09/24/18 00:12 98.1 92 17 132/82 (99) 96 09/23/18 21:00 Room Air 09/23/18 20:59 98.5 09/23/18 20:11 98.5 96 17 138/92 (107) 96 09/23/18 16:00 97.7 98 16 136/86 (103) 98 Height (Feet): 5 Height (Inches): 0.00 Weight (Pounds): 265 General Appearance: no acute distress HEENT: mucous membranes moist Respiratory/Chest: lungs clear Cardiovascular: normal rate Abdomen: other - mild tenderness in R flank Extremities: no edema Neurologic/Psychiatric: alert, oriented x 3, responsive Microbiology Date/Time Source Procedure Growth Status 09/22/18 11:20 Urine,Clean Catch Urine Culture - Final Mixed Urogenital Contaminants Complete Laboratory Tests Test 09/24/18 12:08 White Blood Count 7.7 K/UL (4.8-10.8) Red Blood Count 3.90 M/UL (4.20-5.40) L Hemoglobin 10.8 G/DL (12.0-16.0) L Hematocrit 33.1 % (37.0-47.0) L Mean Corpuscular Volume 85 FL (80-99) Mean Corpuscular Hemoglobin 27.7 PG (27.0-31.0) Mean Corpuscular Hemoglobin Concent 32.7 G/DL (32.0-36.0) Red Cell Distribution Width 12.2 % (11.6-14.8) Platelet Count 106 K/UL (150-450) L Mean Platelet Volume 11.1 FL (6.5-10.1) H Neutrophils (%) (Auto) 75.4 % (45.0-75.0) H Lymphocytes (%) (Auto) 16.9 % (20.0-45.0) L Monocytes (%) (Auto) 5.6 % (1.0-10.0) Eosinophils (%) (Auto) 1.8 % (0.0-3.0) Basophils (%) (Auto) 0.3 % (0.0-2.0) Current Medications Medications (Trade) Dose Ordered Sig/Deep Route PRN Reason Start Time Stop Time Status Last Admin Dose Admin Acetaminophen (Tylenol) 650 mg Q4H PRN ORAL Mild Pain/Temp > 100.5 09/22/18 08:15 10/22/18 08:14 09/22/18 23:33 Acetaminophen/ Hydrocodone Bitart ([place] 5/325) 1 tab Q4H PRN ORAL Moderate Pain (Pain Scale 4-6) 09/22/18 08:15 09/29/18 08:14 09/23/18 20:29 Al Hydroxide/Mg Hydroxide (Mylanta) 30 ml Q6H PRN ORAL Dyspepsia 09/22/18 10:45 10/22/18 10:44 09/23/18 20:28 Atorvastatin Calcium (Lipitor) 80 mg BEDTIME ORAL 09/22/18 21:00 10/22/18 20:59 09/23/18 20:29 Cefepime HCl 1 gm/ Dextrose 55 ml @ 110 mls/hr Q12HR IVPB 09/22/18 09:00 09/29/18 08:59 09/24/18 09:22 Dextrose (Dextrose 50%) 25 ml Q30M PRN IV Hypoglycemia 09/22/18 08:15 10/22/18 08:14 Dextrose (Dextrose 50%) 50 ml Q30M PRN IV Hypoglycemia 09/22/18 08:15 10/22/18 08:14 Insulin Aspart (NovoLOG) BEFORE MEALS AND HS SUBQ 09/22/18 11:30 10/22/18 11:29 09/24/18 11:41 Iopamidol (Isovue-300 100ml) 100 ml NOW PRN INJ Radiology Procedure 09/22/18 03:15 Magnesium Hydroxide (Mom) 30 ml DAILYPRN PRN ORAL Constipation 09/22/18 08:15 10/22/18 08:14 Metformin HCl (Glucophage) 500 mg TIAC ORAL 09/22/18 11:30 10/22/18 11:29 09/24/18 11:40 Ondansetron HCl (Zofran) 4 mg Q6H PRN IVP Nausea & Vomiting 09/22/18 08:15 10/22/18 08:14 Pantoprazole (Protonix) 40 mg DAILY ORAL 09/22/18 09:00 10/22/18 08:59 09/24/18 09:22 Sodium Chloride 1,000 ml @ 100 mls/hr Q10H IV 09/22/18 08:30 10/22/18 08:29 09/24/18 13:30 Zolpidem Tartrate (Ambien) 5 mg HSPRN PRN ORAL Insomnia 09/23/18 21:00 09/30/18 20:59 Rehan Lester MD Sep 24, 2018 13:37"
[2018-09-24 16:00] VITALS: BP 153/98
--- NOTE | 2018-09-24 19:14 | NUR ---
HAND-OFF: Report given to LIZBETH Cook.
--- NOTE | 2018-09-24 19:45 | NUR ---
NURSE NOTES: Received report from Mai Ames RN. Patient A&Ox4. In bed. On room air. no signs of distress or labored breathing. IV intact, patent, and running IV fluids. Bed in lowest position with xall light in reach Will continue to monitor.
[2018-09-24 20:00] VITALS: BP 153/98
[2018-09-24] MEDS: Atorvastatin 80mg tab ORAL SCH (21:34)
[2018-09-25] VITALS: BP_SYST 136; BP_SYST 148; BP_DIAS 78; BP_DIAS 98
[2018-09-25 04:00] VITALS: BP 129/83
[2018-09-25] MEDS: metFORMIN 500mg tab ORAL SCH ×4 (05:58→17:11)
[2018-09-25] MEDS: NovoLOG Insulin Flexpen SUBQ SCH ×4 (05:59→17:11)
--- NOTE | 2018-09-25 07:14 | NUR ---
HAND-OFF: Report given to Mai Ames RN.
[2018-09-25 08:00] VITALS: BP 138/82
--- NOTE | 2018-09-25 08:12 | NUR ---
NURSE NOTES: pt in bed with no sob nor in any form of distress noted. denies any pain at this time. bed in lowest position. call light within reach at all time. will continue to monitor
[2018-09-25] MEDS: Cefepime HCl 1 GM in D5W 55 ML IVPB SCH (08:29)
--- NOTE | 2018-09-25 11:13 | Infectious Diseases Prog Note ---
"Assessment/Plan Assessment/Plan antibiotics : cefepime A 1. UTI | right pyelonephritis 2. diabetes mellitus 3. hypertension 4. fever improving 5. leucocytosis P 1. d/c cefepime 2. start and continue po levoquin 6 more days 3. will follow up cultures Subjective Constitutional: Denies: fever, chills Respiratory: Denies: shortness of breath, dry cough Gastrointestinal/Abdominal: Denies: nausea, vomiting, diarrhea Musculoskeletal: Denies: pain Allergies: Coded Allergies: No Known Allergies (Unverified , 09/22/18) Objective Vital Signs Last 24 Hour Vital Signs Date Time Temp Pulse Resp B/P (MAP) Pulse Ox O2 Delivery O2 Flow Rate FiO2 09/25/18 09:58 Room Air 09/25/18 08:00 98.8 87 20 138/82 (100) 100 09/25/18 04:00 97.7 71 18 129/83 (98) 100 09/25/18 00:00 97.9 75 18 136/78 (97) 99 09/24/18 21:00 Room Air 09/24/18 20:00 98.1 92 18 153/98 (116) 99 09/24/18 16:00 98.1 92 18 153/98 (116) 99 09/24/18 12:00 98.5 88 18 146/96 (113) 99 Height (Feet): 5 Height (Inches): 0.00 Weight (Pounds): 265 Microbiology Date/Time Source Procedure Growth Status 09/22/18 11:20 Urine,Clean Catch Urine Culture - Final Mixed Urogenital Contaminants Complete Laboratory Tests Test 09/24/18 12:08 White Blood Count 7.7 K/UL (4.8-10.8) Red Blood Count 3.90 M/UL (4.20-5.40) L Hemoglobin 10.8 G/DL (12.0-16.0) L Hematocrit 33.1 % (37.0-47.0) L Mean Corpuscular Volume 85 FL (80-99) Mean Corpuscular Hemoglobin 27.7 PG (27.0-31.0) Mean Corpuscular Hemoglobin Concent 32.7 G/DL (32.0-36.0) Red Cell Distribution Width 12.2 % (11.6-14.8) Platelet Count 106 K/UL (150-450) L Mean Platelet Volume 11.1 FL (6.5-10.1) H Neutrophils (%) (Auto) 75.4 % (45.0-75.0) H Lymphocytes (%) (Auto) 16.9 % (20.0-45.0) L Monocytes (%) (Auto) 5.6 % (1.0-10.0) Eosinophils (%) (Auto) 1.8 % (0.0-3.0) Basophils (%) (Auto) 0.3 % (0.0-2.0) Current Medications Medications (Trade) Dose Ordered Sig/Deep Route PRN Reason Start Time Stop Time Status Last Admin Dose Admin Acetaminophen (Tylenol) 650 mg Q4H PRN ORAL Mild Pain/Temp > 100.5 09/22/18 08:15 10/22/18 08:14 09/22/18 23:33 Acetaminophen/ Hydrocodone Bitart ([place] 5/325) 1 tab Q4H PRN ORAL Moderate Pain (Pain Scale 4-6) 09/22/18 08:15 09/29/18 08:14 09/23/18 20:29 Al Hydroxide/Mg Hydroxide (Mylanta) 30 ml Q6H PRN ORAL Dyspepsia 09/22/18 10:45 10/22/18 10:44 09/23/18 20:28 Atorvastatin Calcium (Lipitor) 80 mg BEDTIME ORAL 09/22/18 21:00 10/22/18 20:59 09/24/18 21:34 Cefepime HCl 1 gm/ Dextrose 55 ml @ 110 mls/hr Q12HR IVPB 09/22/18 09:00 09/29/18 08:59 09/25/18 08:29 Dextrose (Dextrose 50%) 25 ml Q30M PRN IV Hypoglycemia 09/22/18 08:15 10/22/18 08:14 Dextrose (Dextrose 50%) 50 ml Q30M PRN IV Hypoglycemia 09/22/18 08:15 10/22/18 08:14 Insulin Aspart (NovoLOG) BEFORE MEALS AND HS SUBQ 09/22/18 11:30 10/22/18 11:29 09/25/18 05:59 Iopamidol (Isovue-300 100ml) 100 ml NOW PRN INJ Radiology Procedure 09/22/18 03:15 Magnesium Hydroxide (Mom) 30 ml DAILYPRN PRN ORAL Constipation 09/22/18 08:15 10/22/18 08:14 Metformin HCl (Glucophage) 500 mg TIAC ORAL 09/22/18 11:30 10/22/18 11:29 09/25/18 05:58 Ondansetron HCl (Zofran) 4 mg Q6H PRN IVP Nausea & Vomiting 09/22/18 08:15 10/22/18 08:14 Pantoprazole (Protonix) 40 mg DAILY ORAL 09/22/18 09:00 10/22/18 08:59 09/25/18 08:29 Sodium Chloride 1,000 ml @ 100 mls/hr Q10H IV 09/22/18 08:30 10/22/18 08:29 09/25/18 06:08 Zolpidem Tartrate (Ambien) 5 mg HSPRN PRN ORAL Insomnia 09/23/18 21:00 09/30/18 20:59 Medina Ybarra MD Sep 25, 2018 11:13"
[2018-09-25 12:00] VITALS: BP 150/92
[2018-09-25] MEDS ORDERED: Levofloxacin 500mg tab ORAL SCH (12:00)
--- NOTE | 2018-09-25 12:37 | Pulmonology Progress Note ---
Assessment/Plan Assessment/Plan Pulmonary Progress Note Patient with right Pyelonephritis, previously c/o right flank pain lower abdomen pain dysuria frequency Afebrile Elevated WCC, AB per ID Assessment/Plan uti possible pyelo leukocytosis PLAN iv hydration iv antibiotics ID clearance check wbc impression, plan, and exam edited and reviewed in detail care discussed with RN Allergies: No Known Allergies (Unverified , 09/22/18) Past Medical History: UTI Laboratory Tests Test 09/22/18 03:10 White Blood Count 11.2 K/UL (4.8-10.8) H Red Blood Count 4.37 M/UL (4.20-5.40) Hemoglobin 12.4 G/DL (12.0-16.0) Hematocrit 37.1 % (37.0-47.0) Mean Corpuscular Volume 85 FL (80-99) Mean Corpuscular Hemoglobin 28.3 PG (27.0-31.0) Mean Corpuscular Hemoglobin Concent 33.4 G/DL (32.0-36.0) Red Cell Distribution Width 12.2 % (11.6-14.8) Platelet Count 124 K/UL (150-450) L Mean Platelet Volume 13.7 FL (6.5-10.1) H Neutrophils (%) (Auto) 81.8 % (45.0-75.0) H Lymphocytes (%) (Auto) 16.3 % (20.0-45.0) L Monocytes (%) (Auto) 0.9 % (1.0-10.0) L Eosinophils (%) (Auto) 0.5 % (0.0-3.0) Basophils (%) (Auto) 0.6 % (0.0-2.0) Urine Color Pale yellow Urine Appearance Clear Urine pH 5 (4.5-8.0) Urine Specific [place] 1.020 (1.005-1.035) Urine Protein Negative (NEGATIVE) Urine Glucose (UA) 2+ (NEGATIVE) H Urine Ketones Negative (NEGATIVE) Urine Blood Negative (NEGATIVE) Urine Nitrite Negative (NEGATIVE) Urine Bilirubin Negative (NEGATIVE) Urine Urobilinogen Normal MG/DL (0.0-1.0) Urine Leukocyte Esterase 1+ (NEGATIVE) H Urine RBC 0-2 /HPF (0 - 2) Urine WBC 5-10 /HPF (0 - 2) H Urine Squamous Epithelial Cells Moderate /LPF (NONE/OCC) H Urine Bacteria Few /HPF (NONE) Sodium Level 140 MMOL/L (136-145) Potassium Level 3.5 MMOL/L (3.5-5.1) Chloride Level 102 MMOL/L (98-107) Carbon Dioxide Level 30 MMOL/L (21-32) Anion Gap 8 mmol/L (5-15) Blood Urea Nitrogen 17 mg/dL (7-18) Creatinine 1.1 MG/DL (0.55-1.30) Estimat Glomerular Filtration Rate 52.6 mL/min (>60) Glucose Level 257 MG/DL (74-106) H Calcium Level 8.8 MG/DL (8.5-10.1) Total Bilirubin 0.3 MG/DL (0.2-1.0) Aspartate Amino Transf (AST/SGOT) 14 U/L (15-37) L Alanine Aminotransferase (ALT/SGPT) 22 U/L (12-78) Alkaline Phosphatase 94 U/L (46-116) Total Protein 7.5 G/DL (6.4-8.2) Albumin 3.6 G/DL (3.4-5.0) Globulin 3.9 g/dL Albumin/Globulin Ratio 0.9 (1.0-2.7) L Lipase 164 U/L (73-393) Pertinent Family History: none VSS noted Physical WDWN NAD clear breath sounds bilaterally without rhonchi or wheeze [id number] tachy without MRG NABS nontender no HSM no CCE nonfocal mild right flank tenderness IMPRESSION possible pyelo vomiting PLAN iv hydration iv antibiotics repeat labs zofran ID evaluation dc once stable Subjective ROS Limited/Unobtainable: No Allergies: Coded Allergies: No Known Allergies (Unverified , 09/22/18) Objective Last 24 Hour Vital Signs Date Time Temp Pulse Resp B/P (MAP) Pulse Ox O2 Delivery O2 Flow Rate FiO2 09/25/18 12:00 98.0 78 18 150/92 (111) 100 09/25/18 09:58 Room Air 09/25/18 08:00 98.8 87 20 138/82 (100) 100 09/25/18 04:00 97.7 71 18 129/83 (98) 100 09/25/18 00:00 97.9 75 18 136/78 (97) 99 09/24/18 21:00 Room Air 09/24/18 20:00 98.1 92 18 153/98 (116) 99 09/24/18 16:00 98.1 92 18 153/98 (116) 99 Intake and Output 09/24/18 09/25/18 18:59 06:59 Intake Total 1235 ml 1175 ml Balance 1235 ml 1175 ml Intake Oral 680 ml 120 ml IV Total 555 ml 1055 ml # Voids 4 2 Current Medications Medications (Trade) Dose Ordered Sig/Deep Route PRN Reason Start Time Stop Time Status Last Admin Dose Admin Acetaminophen (Tylenol) 650 mg Q4H PRN ORAL Mild Pain/Temp > 100.5 09/22/18 08:15 10/22/18 08:14 09/22/18 23:33 Acetaminophen/ Hydrocodone Bitart ([place] 5/325) 1 tab Q4H PRN ORAL Moderate Pain (Pain Scale 4-6) 09/22/18 08:15 09/29/18 08:14 09/23/18 20:29 Al Hydroxide/Mg Hydroxide (Mylanta) 30 ml Q6H PRN ORAL Dyspepsia 09/22/18 10:45 10/22/18 10:44 09/23/18 20:28 Atorvastatin Calcium (Lipitor) 80 mg BEDTIME ORAL 09/22/18 21:00 10/22/18 20:59 09/24/18 21:34 Dextrose (Dextrose 50%) 25 ml Q30M PRN IV Hypoglycemia 09/22/18 08:15 10/22/18 08:14 Dextrose (Dextrose 50%) 50 ml Q30M PRN IV Hypoglycemia 09/22/18 08:15 10/22/18 08:14 Insulin Aspart (NovoLOG) BEFORE MEALS AND HS SUBQ 09/22/18 11:30 10/22/18 11:29 09/25/18 11:29 Iopamidol (Isovue-300 100ml) 100 ml NOW PRN INJ Radiology Procedure 09/22/18 03:15 Levofloxacin (Levaquin) 500 mg DAILY ORAL 09/25/18 12:00 10/02/18 11:59 09/25/18 11:27 Magnesium Hydroxide (Mom) 30 ml DAILYPRN PRN ORAL Constipation 09/22/18 08:15 10/22/18 08:14 Metformin HCl (Glucophage) 500 mg TIAC ORAL 09/22/18 11:30 10/22/18 11:29 09/25/18 11:27 Ondansetron HCl (Zofran) 4 mg Q6H PRN IVP Nausea & Vomiting 09/22/18 08:15 10/22/18 08:14 Pantoprazole (Protonix) 40 mg DAILY ORAL 09/22/18 09:00 10/22/18 08:59 09/25/18 08:29 Sodium Chloride 1,000 ml @ 100 mls/hr Q10H IV 09/22/18 08:30 10/22/18 08:29 09/25/18 06:08 Zolpidem Tartrate (Ambien) 5 mg HSPRN PRN ORAL Insomnia 09/23/18 21:00 09/30/18 20:59 Michael Almendarez MD Sep 25, 2018 12:37
[2018-09-25 16:00] VITALS: BP 155/93
[2018-09-25] MEDS ORDERED: METFORMIN HCL500 M1 ORAL (17:35)
[2018-09-25] MEDS ORDERED: PROTONIX40 MG ORAL (17:36)
[2018-09-25] MEDS ORDERED: LEVAQUIN500 MG ORAL (17:36)
[2018-09-25] MEDS ORDERED: Tubing IV Secondary IV ONE (17:59)
--- NOTE | 2018-09-25 18:00 | NUR ---
NURSE NOTES: pt discharged to home picked up by her brother with stable condition. pt denies any pain at this time. vss. all discharge instruction given to pt and verbalized understanding. iv heplock removed and covered with gauze and taped. no bleeding noted. all belongings given to pt.
--- NOTE | 2018-09-27 11:22 | Discharge Summary ---
Discharge Summary Discharge Summary _ DATE OF ADMISSION: 09/22/2018 DATE OF DISCHARGE: 09/25/2018 DISCHARGED BY: Dr. Hernández REASON FOR ADMISSION: 52 years old female with past medical history of hypertension, diabetes mellitus , presented with complaint of right flank pain, dysuria and urinary frequency. Patient had recent history of urinary tract infection. Patient reported nausea and vomiting along with fever and chills. On evaluation in the emergency department vital signs were stable , patient was afebrile. Laboratory workup revealed leukocytosis, stable hemoglobin and hematocrit. Urinalysis with pyuria. positive for leukocyte esterase and few bacteria. CT of the abdomen and pelvis revealed obstructive nephropathy in the right kidney with delayed enhancement of the right kidney and moderate inflammation and hydroureteronephrosis. No obstructive stone seen. Findings could be possibly due to recently passed stone. Pyelonephritis was another consideration. Patient admitted for further management. CONSULTANTS: ID specialist Dr. Ybarra HOSPITAL COURSE: Patient admitted to medical surgical floor. Patient started on IV fluids and broad-spectrum antibiotics. Infectious disease specialist closely followed. Patient was kept on IV antibiotic as per ID recommendation. Pain management was addressed as needed. Symptomatic management with antiemetic provided as needed. Urine culture revealed mixed urogenital contaminants. Leukocytosis initially increased and then resolved. Patient initially febrile with the highest temperature 102.2 , subsequently fever resolved. Infectious disease specialist recommended to continue oral antibiotic for additional 6 days upon discharge. Renal parameters and electrolytes were closely monitored, remained stable. Blood pressure was closely monitored. Blood sugar was managed with metformin and sliding scale of insulin as needed. GI prophylaxis provided. Supportive care provided. Patient clinically stabilized and was ready for discharge home. FINAL DIAGNOSES: Urinary tract infection Right pyelonephritis Diabetes mellitus Hypertension Leukocytosis - resolved DISCHARGE MEDICATIONS: See Medication Reconciliation list. DISCHARGE INSTRUCTIONS: Patient was discharged home. Follow up with primary care provider in one week. I have been assigned to dictate discharge summary for this account. I was not involved in the patient's management. Josie Mead NP Sep 27, 2018 11:22
== END 2018-09-25 18:00 | disposition home or self-care (01) | DRG 463 ==
LOC: EDBD 02:44 → EMR 03:17 → 4E 05:10 → EDBEDREQ 06:06 → 4E 14:57
DX: N39.0 Urinary tract infection, site not specified (principal); E11.9 Type 2 diabetes mellitus without complications; N12 Tubulo-interstitial nephritis, not specified as acute or chronic; I10 Essential (primary) hypertension; E78.00 Pure hypercholesterolemia, unspecified; N13.8 Other obstructive and reflux uropathy; R11.2 Nausea with vomiting, unspecified
CPT/HCPCS: 36415; 74177; 80048; 80053; 81003; 82962; 83690; 85007; 85025; 87086; 96361; 96365; 96375; 99285; J1815; J2405